=== PATIENT | female | born 1975 | race Hispanic/Latino ===

== ENCOUNTER 2024-02-12 15:54 | Emergency (ER) | payer OTHER ==
--- NOTE | 2024-02-12 17:09 | EDPHYS ---
Physician Documentation [facility] Name: Rona Thompson Age: 48 yrs Sex: Female : 1975 Arrival Date: 02/12/2024 Time: 15:54 Bed 12 Private MD: ED Physician Tanner Elena HPI: 02/11 16:17 This 48 yrs old Female presents to ER via Ambulatory with complaints of ms3 foreign body stuck in throat. 16:17 48-year-old female with no past medical history presents to the emergency department ms3 for concern for plastic from inside the bottle Of a juice bottle being lodged in her throat. Patient states at 10:00 this morning she drank juice and felt like the plastic was hung in her throat. Patient states the pain is a 3/10. Patient denies any alleviating factors. Patient states her pain is worse with swallowing.. 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 - Social history:: Smoking status: Patient denies any tobacco usage or history of. ROS: 16:17 Constitutional: Negative for fever, and chills. ms3 16:17 Cardiovascular: Negative for chest pain, and palpitations. Respiratory: Negative for shortness of breath, cough, wheezing, and pleuritic chest pain, Abdomen/GI: Negative for abdominal pain, nausea, vomiting, diarrhea, and constipation, Skin: Negative for injury, rash, and discoloration, 16:17 ENT: Positive for sore throat, Exam: 16:17 Constitutional: This is a well developed, well nourished patient who is awake, alert, ms3 and in no acute distress. Head/Face: Normocephalic, atraumatic. Neck: Trachea midline, no cervical lymphadenopathy. Supple, full range of motion without nuchal rigidity, or vertebral point tenderness. No Meningismus. Chest/axilla: Normal chest wall appearance and motion. Nontender with no deformity. Cardiovascular: Regular rate and rhythm with a normal S1 and S2. No gallops, murmurs, or rubs. Normal PMI, no JVD. No pulse deficits. Respiratory: Lungs have equal breath sounds bilaterally, clear to auscultation and percussion. No rales, rhonchi or wheezes noted. No increased work of breathing, no retractions or nasal flaring. 16:17 ENT: Posterior pharynx: Tonsils: are normal in appearance, Uvula: normal, midline, swelling, is not appreciated, erythema, that is moderate, exudate, is not appreciated, peritonsillar mass, is not appreciated, pooling of secretions, is not appreciated, Postnasal drip, Vital Signs: 16:15 BP 118 / 105; Pulse 70; Resp 17; Temp 98.1; Pulse Ox 97% ; Weight 63.5 kg; Height 5 ft. ap3 1 in. ; 16:15 Body Mass Index 26.45 (63.50 kg, 154.94 cm) ap3 MDM: 16:13 Patient medically screened. ms3 16:17 Differential diagnosis: pharyngitis, viral syndrome. ms3 17:14 Data reviewed: vital signs, nurses notes, lab test result(s), and as a result, I will ms3 discharge patient. Counseling: I had a detailed discussion with the patient and/or guardian regarding the historical points, exam findings, and any diagnostic results supporting the discharge/admit diagnosis, lab results, the need for outpatient follow up, to return to the emergency department if symptoms worsen or persist or if there are any questions or concerns that arise at home. ED course: Discussed negative strep results with patient. Patient's throat reexamined and no plastic seen, postnasal drip present with mucus. Uvula is midline no signs of oropharyngeal or retropharyngeal abscess. Patient to follow-up with primary care physician in 2 to 3 days. Patient understands and agrees with plan. All questions were answered. Return precautions discussed include worsening symptoms, or any other concerns. 02/11 16:16 Order name: Strep ms3 02/11 16:55 Order name: Throat Culture EDMS Administered Medications: No medications were administered Disposition Summary: 02/12/24 17:08 Discharge Ordered Notes: Location: Home ms3 Condition: Stable ms3 Diagnosis - Pain in throat ms3 - Elevated blood-pressure reading, without diagnosis of hypertension ms3 Followup: ms3 - With: Zurdo Crowell DO - When: 2 - 3 days - Reason: Recheck today's complaints Discharge Instructions: - Discharge Summary Sheet ms3 - Sore Throat, [id number] ms3 - DASH Eating Plan ms3 Forms: - Medication Reconciliation Form ms3 - Thank You Letter ms3 - Antibiotic Education ms3 - Prescription Opioid Use ms3 - Patient Portal Instructions ms3 - Leadership Thank You Letter ms3 Prescriptions: - Nasacort 55 mcg Nasal Aerosol, Fidelity - spray 2 spray INTRANASAL route once administer into each nostril; 11.1 ms3 milliliter; Refills: 0, Product Selection Permitted - Claritin 10 mg Oral Tablet - take 1 tablet ORAL route once daily As needed; 30 tablet; Refills: 0, Product ms3 Selection Permitted Signatures: Dispatcher [employer] Winifred Jha RN RN ap3 Tanner Elena DO DO ms3
--- NOTE | 2024-02-12 17:09 | ER ---
Nurse's Notes [facility] Name: Rona Thompson Age: 48 yrs Sex: Female : 1975 Arrival Date: 02/12/2024 Time: 15:54 Bed 12 Private MD: Diagnosis: Pain in throat;Elevated blood-pressure reading, without diagnosis of hypertension Presentation: 02/11 16:15 Chief complaint: Patient states: she was drinking juice this morning and felt like the ap3 plastic piece popped off and got stuck. patient complains of pain in her throat. Coronavirus screen: sore throat. Ebola Screen: No symptoms or risks identified at this time. Initial Sepsis Screen: Does the patient meet any 2 criteria? No. Patient's initial sepsis screen is negative. Does the patient have a suspected source of infection? No. Patient's initial sepsis screen is negative. Risk Assessment: Do you want to hurt yourself or someone else? Patient reports no desire to harm self or others. Onset of symptoms was February 12, 2024. 16:15 Method Of Arrival: Ambulatory ap3 16:15 Acuity: JESSICA 4 ap3 Triage Assessment: 16:17 General: Appears in no apparent distress. Behavior is calm, cooperative, appropriate ap3 for age. Pain: Complains of pain in throat Pain began this morning. EENT: Reports pain when swallowing. Neuro: Level of Consciousness is awake, alert, obeys commands, Oriented to person, place, time, situation. Cardiovascular: Patient's skin is warm and dry. Respiratory: Airway is patent Respiratory effort is even, unlabored, Respiratory pattern is regular, symmetrical. 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 - Social history:: Smoking status: Patient denies any tobacco usage or history of. Screenin:18 Abuse screen: Denies threats or abuse. Nutritional screening: No deficits noted. ap3 Tuberculosis screening: No symptoms or risk factors identified. 17:46 [facility] ED Fall Risk Assessment (Adult) History of falling in the last 3 months, ap3 including since admission No falls in past 3 months (0 pts) Confusion or Disorientation No (0 pts) Intoxicated or Sedated No (0 pts) Impaired Gait No (0 pts) Mobility Assist Device Used No (0 pt) Altered Elimination No (0 pt) Score/Fall Risk Level 0 - 2 = Low Risk Oriented to surroundings, Maintained a safe environment, Educated pt \T\ family on fall prevention, incl call for assistance when getting out of bed, Assessed \T\ reinforced patient's understanding of fall precautions, Provided non-skid footwear, Hourly rounding (assess needs \T\ fall precautionary measures) done, Used ambulatory aids as needed (educated on \T\ assisted with), Used gait belt as appropriate. Vital Signs: 16:15 BP 118 / 105; Pulse 70; Resp 17; Temp 98.1; Pulse Ox 97% ; Weight 63.5 kg; Height 5 ft. ap3 1 in. ; 16:15 Body Mass Index 26.45 (63.50 kg, 154.94 cm) ap3 ED Course: 15:56 Patient arrived in ED. ra3 15:57 Tanner Elena DO is Attending Physician. ms3 16:17 Triage completed. ap3 16:18 Arm band placed on right wrist. ap3 17:08 Zurdo Crowell DO is Referral Physician. ms3 17:45 No provider procedures requiring assistance completed. Patient did not have IV access ap3 during this emergency room visit. 17:46 Patient has correct armband on for positive identification. Bed in low position. Call ap3 light in reach. Side rails up X 1. Provided Education on: discharge instructions. Administered Medications: No medications were administered Medication: 17:46 VIS not applicable for this client. ap3 Outcome: 17:08 Discharge ordered by . ms3 17:45 Discharged to home ambulatory, ap3 17:45 Condition: good 17:45 Discharge instructions given to patient, Instructed on discharge instructions, follow up and referral plans. medication usage, Demonstrated understanding of instructions, follow-up care, medications, Prescriptions given X 2, 17:47 Patient left the ED. ap3 Signatures: Winifred Ohara RN RN ap3 Tanner Elena DO DO ms3 Alva Cisneros ra3
[2024-02-12 18:04] VITALS: BP 118/105; TEMP 98.1; O2SAT 97
== END 2024-02-12 17:47 | disposition home or self-care (01) ==
LOC: ER 15:54
DX: R07.0 Pain in throat (principal); R03.0 Elevated blood-pressure reading, without diagnosis of hypertension
CPT/HCPCS: 87070; 87081; 99283

== ENCOUNTER 2024-12-14 20:23 | Inpatient (IN) | payer OTHER ==
[2024-12-14 20:49] LABS: Absolute Basophils 0.2 K/uL (0-0.5); Absolute Eosinophils 0.1 K/uL (0-0.5); Absolute Monocytes 1.1 K/uL (0.1-1.3); Basophils % 1.3 % (0-1.3); Eosinophils % 1.1 % (0-4.4); Hematocrit 42.5 % (36.0-45.0); Hemoglobin 14.4 g/dL (12.0-15.0); Lymphocytes % 37.1 % (15.3-44.8); MCV 91.3 fL (80-100); MPV 8.5 fL (7.6-11.3); Monocytes % 8.4 % (3.3-12.3); Neutrophils % 52.1 % (41.7-73.7); Nucleated Red Blood Cells % 0.1 % (0-0); Platelets 408 thou/uL (152-406); RBC Red Blood Cell Count 4.65 M/uL (3.86-4.86); Red Cell Distribution Width 13.5 % (12.1-15.2)
[2024-12-14] MEDS ORDERED: NA CHLORIDE 0.9% 1,000 ML ONE (20:51)
[2024-12-14] MEDS ORDERED: ASPIRIN 81 MG CHEWABLE TABLET ONE (20:51)
[2024-12-14 20:59] LABS: PT Prothrombin Time 10.9 SECONDS (9.4-12.5); PTT, Activated Partial Thromb 26.3 SECONDS (24.3-36.9); Protime INR 1.04
[2024-12-14 21:14] LABS: ALT/SGPT 25 U/L (13-56); AST/SGOT 14 U/L (15-37); Albumin 3.8 g/dL (3.4-5.0); Albumin/Globulin Ratio 0.8 (1.1-1.8); Alkaline Phosphatase 92 U/L (45-117); Anion Gap 10.8 mEq/L (5.0-15.0); BUN Blood Urea Nitrogen 16 mg/dL (7-18); Bicarbonate 24 mEq/L (21-32); Bilirubin Total 0.3 mg/dL (0.2-1.0); Globulin 4.6 g/dL (2.3-3.5); Glomerular Filtration Rate 106 ml/min (=/>90); Glucose Level 99 mg/dL (74-106); Lipase 33 U/L (13-75); Magnesium 2.1 mg/dL (1.6-2.4); NT PRO-BNP 21 pg/mL (<125); Potassium 3.8 mEq/L (3.5-5.1); Protein, Total 8.4 g/dL (6.4-8.2); Sodium Level 133 mEq/L (136-145); Troponin High Sensitivity 5.4 pg/mL (<58.9)
[2024-12-14 21:15] LABS: Bilirubin Direct < 0.2 mg/dL (0-0.2); Bilirubin Indirect, Calculated 0.1 mg/dL (0.2-0.8)
--- NOTE | 2024-12-14 21:24 | RAD REPORT ---
EXAMINATION: ONE VIEW CHEST XR CLINICAL INDICATION: Female, 49 years old.,CHEST PAIN TECHNIQUE: Frontal chest projection is submitted. Examination is limited by patient positioning and t echnique. COMPARISON: No prior exam. FINDINGS: The lungs are free of focal infiltrates, with perihilar central interstitial prominence, could relate to under inflation. No pneumothorax or sizable effusion. The heart is normal in size. Mediastinal contours are unremarkable. IMPRESSION: Mild central interstitial prominence, could relate to under inflation versus mild central congestion.
[2024-12-14 22:05] LABS: Specific Gravity 1.016 (1.005-1.030); Sqamous Epithelial <5 /HPF (None Seen); Urine Bacteria None Seen /HPF (<20); Urine Bilirubin NEGATIVE (Negative); Urine Blood 1+ (Negative); Urine Clarity Clear (Clear); Urine Color Colorless (Yellow); Urine Culture Reflex Order NOT NEEDED; Urine Glucose NEGATIVE (Negative); Urine Ketones NEGATIVE (Negative); Urine Microscopic Reflex YN ORDER UMIC; Urine Nitrite NEGATIVE (Negative); Urine Protein NEGATIVE (Negative); Urine RBC <5 /HPF (None Seen); Urine Urobilinogen Normal (Normal); Urine WBC <5 /HPF (<5); Urine Yeast (Budding) Trace /HPF (None Seen)
[2024-12-14 22:22] LABS: Barbiturates NEGATIVE (NEGATIVE); Benzodiazepines NEGATIVE (NEGATIVE); Cocaine NEGATIVE (NEGATIVE); METHAMPHETAM NEGATIVE (NEGATIVE); Methadone NEGATIVE (NEGATIVE); Opiates NEGATIVE (NEGATIVE); Phencyclidine NEGATIVE (NEGATIVE); THC Cannibis NEGATIVE (NEGATIVE)
--- NOTE | 2024-12-14 22:27 | EDPHYS ---
Physician Documentation [facility] Name: Rona Thompson Age: 49 yrs Sex: Female : 1975 Arrival Date: 12/14/2024 Time: 20:23 Bed 8 Private MD: SCOTT Physician Mark Earl HPI: 12/14 22:20 This 49 yrs old Female presents to ER via Wheelchair with complaints of Chest price Pain. 22:20 This 49 yrs old Female presents to ER via Wheelchair with complaints of Chest price Pain. 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 - Infectious Disease History:: Denies. - Social history:: Smoking status: Patient denies any tobacco usage or history of. ROS: 22:22 Constitutional: Negative for fever, chills, and weight loss, Eyes: Negative for injury, price pain, redness, and discharge, ENT: Negative for injury, pain, and discharge, Neck: Negative for injury, pain, and swelling, Respiratory: Negative for shortness of breath, cough, wheezing, and pleuritic chest pain, Abdomen/GI: Negative for abdominal pain, nausea, vomiting, diarrhea, and constipation, Back: Negative for injury and pain, : Negative for injury, bleeding, discharge, and swelling, MS/Extremity: Negative for injury and deformity, Skin: Negative for injury, rash, and discoloration, Neuro: Negative for headache, weakness, numbness, tingling, and seizure, Psych: Negative for depression, anxiety, suicide ideation, homicidal ideation, and hallucinations, Allergy/Immunology: Negative for hives, rash, and allergies, Endocrine: Negative for neck swelling, polydipsia, polyuria, polyphagia, and marked weight changes, Hematologic/Lymphatic: Negative for swollen nodes, abnormal bleeding, and unusual bruising, 22:22 Cardiovascular: Positive for chest pain, of the chest, 22:22 MS/extremity: Negative for acute changes, Exam: 22:22 Constitutional: This is a well developed, well nourished patient who is awake, alert, price and in no acute distress. Head/Face: Normocephalic, atraumatic. Eyes: Pupils equal round and reactive to light, extra-ocular motions intact. Lids and lashes normal. Conjunctiva and sclera are non-icteric and not injected. Cornea within normal limits. Periorbital areas with no swelling, redness, or edema. ENT: Nares patent. No nasal discharge, no septal abnormalities noted. Tympanic membranes are normal and external auditory canals are clear. Oropharynx with no redness, swelling, or masses, exudates, or evidence of obstruction, uvula midline. Mucous membranes moist. Neck: Trachea midline, no thyromegaly or masses palpated, and no cervical lymphadenopathy. Supple, full range of motion without nuchal rigidity, or vertebral point tenderness. No Meningismus. Chest/axilla: Normal chest wall appearance and motion. Nontender with no deformity. No lesions are appreciated. Cardiovascular: Regular rate and rhythm with a normal S1 and S2. No gallops, murmurs, or rubs. Normal PMI, no JVD. No pulse deficits. Respiratory: Lungs have equal breath sounds bilaterally, clear to auscultation and percussion. No rales, rhonchi or wheezes noted. No increased work of breathing, no retractions or nasal flaring. Abdomen/GI: Soft, non-tender, with normal bowel sounds. No distension or tympany. No guarding or rebound. No evidence of tenderness throughout. Back: No spinal tenderness. No costovertebral tenderness. Full range of motion. Skin: Warm, dry with normal turgor. Normal color with no rashes, no lesions, and no evidence of cellulitis. MS/ Extremity: Pulses equal, no cyanosis. Neurovascular intact. Full, normal range of motion., bilateral aka Neuro: Awake and alert, GCS 15, oriented to person, place, time, and situation. Cranial nerves II-XII grossly intact. Motor strength 5/5 in all extremities. Sensory grossly intact. Cerebellar exam normal. Normal gait. Psych: Awake, alert, with orientation to person, place and time. Behavior, mood, and affect are within normal limits. 22:22 ECG was reviewed by the Attending Physician. Vital Signs: 20:34 BP 156 / 100; Pulse 89; Resp 15; Temp 98.9(O); Pulse Ox 100% ; Weight 69.4 kg; Height 4 cm10 ft. 11 in. ; 21:29 BP 135 / 73; Pulse 74; Resp 16; Pulse Ox 100% ; cp4 21:52 BP 126 / 75; Pulse 81; Resp 17; Pulse Ox 99% ; cp4 23:30 BP 133 / 87; Pulse 66; Resp 16; Pulse Ox 98% ; cp4 12/15 01:03 BP 117 / 70; Pulse 60; Resp 16; Pulse Ox 98% ; cp4 12/14 20:34 Body Mass Index 30.90 (69.40 kg, 149.86 cm) cm10 MDM: 12/14 20:34 Medical Screening Exam initiated price 22:23 Differential diagnosis: abnormal EKG, acute myocardial infarction, acute pericarditis, price anxiety, coronary artery disease chest wall pain, congestive heart failure Cholelithiasis costochondritis, esophagitis, gastritis, herpes zoster, pancreatitis, pneumonia, pulmonary embolus, stable angina, thoracic aortic disection, unstable angina. HEART Score: History: Moderately Suspicious (1), ECG: Non specific repolarization disturbance / LBTB / PM (1), Age: > 45 and < 65 years (1), Risk Factors:. The patient was given aspirin in the Emergency Department. NEVIN Risk Score: 1 - Three or more CAD risk factors, 1 - Recent [<24hrs] Severe Angina, TOTAL SCORE = 2. Data reviewed: vital signs, nurses notes, EMS record, lab test result(s), EKG, radiologic studies, CT scan, plain films. Consideration of Admission/Observation Patient was admitted/placed on observation. Escalation of care including admission/observation considered. I considered the following discharge prescriptions or medication management in the emergency department Medications were administered in the Emergency Department. See MAR. Independent interpretation of the following test(s) in the Emergency Department EKG: See my EKG interpretation above. Test considered but Not performed: Ultrasound NO 2 D ECHO. Historians other than the Patient: EMS: EMS WELL INFORMED. Care significantly affected by the following chronic conditions: Hypertension, Obesity. Counseling: I had a detailed discussion with the patient and/or guardian regarding the historical points, exam findings, and any diagnostic results supporting the discharge/admit diagnosis, lab results, radiology results, the need for further work-up and treatment in the hospital. 12/14 20:38 Order name: Basic Metabolic Panel; Complete Time: 21:33 [facility] 12/14 20:38 Order name: CBC with Diff; Complete Time: 21:33 [facility] 12/14 20:38 Order name: LFT's; Complete Time: 21: [facility] 12/14 20:38 Order name: Magnesium; Complete Time: 21:33 [facility] 12/14 20:38 Order name: NT PRO-BNP; Complete Time: 21:33 [facility] 12/14 20:38 Order name: PT-INR; Complete Time: 21: [facility] 12/14 20:38 Order name: Troponin HS; Complete Time: 21: [facility] 12/14 20:38 Order name: Lipase; Complete Time: 21: [facility] 12/14 20:38 Order name: Acetaminophen; Complete Time: : [facility] 12/14 20:38 Order name: ETOH Level; Complete Time: 21: [facility] 12/14 20:38 Order name: Ptt, Activated; Complete Time: 21:33 [facility] 12/14 20:38 Order name: Salicylate; Complete Time: 22:19 [facility] 12/14 20:38 Order name: Urinalysis w/ reflexes; Complete Time: 22:19 [facility] 12/14 20:38 Order name: Urine Drug Screen; Complete Time: : [facility] 12/14 20:45 Order name: Glucose, Ancillary Testing; Complete Time: : [facility] 12/14 23:13 Order name: Urinalysis w/ reflexes EDMA 12/14 23:13 Order name: CBC with Automated Diff EDMS 12/14 23:13 Order name: CBC with Automated Diff EDMS 12/14 23:13 Order name: Comprehensive Metabolic Panel EDMA 12/14 23:13 Order name: Comprehensive Metabolic Panel EDMS 12/14 23:13 Order name: Troponin High Sensitivity EDMS 12/14 23:13 Order name: Troponin High Sensitivity EDMS 12/14 23:13 Order name: Troponin High Sensitivity EDMS 12/14 23:13 Order name: Troponin High Sensitivity EDMA 12/14 20:38 Order name: XRAY Chest (1 view); Complete Time: 21:33 [facility] 12/14 20:38 Order name: CT Head Brain wo Cont; Complete Time: 01: [facility] 12/14 20:38 Order name: CT Chest For PE Angio; Complete Time: : [facility] 12/14 20:38 Order name: EKG; Complete Time: 20:39 [facility] 12/14 20:38 Order name: Cardiac monitoring; Complete Time: 20:40 [facility] 12/14 20:38 Order name: EKG - Nurse/Tech; Complete Time: 20:40 [facility] 12/14 20:38 Order name: IV Saline Lock; Complete Time: 20:40 [facility] 12/14 20:38 Order name: Labs collected and sent; Complete Time: 20:40 [facility] 12/14 20:38 Order name: O2 Per Protocol; Complete Time: 20:40 [facility] 12/14 20:38 Order name: O2 Sat Monitoring; Complete Time: 20:40 [facility] 12/14 20:38 Order name: Suicide Screening ([place]); Complete Time: 22:07 [facility] EC:22 Rate is 78 beats/min. Rhythm is regular. QRS [place] is Normal. ME interval is normal. QRS price interval is normal. QT interval is normal. No Q waves. T waves are Normal. No ST changes noted. Clinical impression: Normal ECG and No evidence of ischemia. Interpreted by me. Reviewed by me. Administered Medications: 20:54 Drug: Aspirin PO Chewable Tablet 81 mg PO once Route: PO; cp4 21:29 Follow up: Response: No adverse reaction cp4 20:54 Drug: NS 0.9% IV 1000 ml IV at 1000 ml once; to be given as a bolus over 60 minutes cp4 Route: IV; Rate: 1000 ml; Site: right antecubital; 23:00 Follow up: Response: No adverse reaction; IV Status: Completed infusion; IV Intake: ha1 1000ml 23:18 Drug: Enoxaparin Sub-Q 70 mg Sub-Q once Route: Sub-Q; Site: abdomen; cp4 23:29 Follow up: Response: No adverse reaction cp4 23:18 Drug: Famotidine IVP 20 mg IVP once; dilute with 10 mL 0.9% NaCl; give over 2 minutes cp4 Route: IVP; Site: right antecubital; 23:29 Follow up: Response: No adverse reaction cp4 Point of Care Testing: Blood Glucose: 20:36 Blood Glucose: 96 mg/dL; cm10 Ranges: Critical Glucose Levels:Adult <50 mg/dl or >400 mg/dl <40 mg/dl or >180 mg/dl Disposition Summary: 12/14/24 22:27 Hospitalization Ordered Notes: Hospitalization Status: Observation [facility] Provider: Antione Garrison cha Location: Telemetry/MedSurg (observation) price Condition: Stable price Problem: new price Symptoms: have improved price Bed/Room Type: Standard [facility] Room Assignment: 430(12/15/24 00:26) julio Diagnosis - Chest pain, unspecified price - Dyspnea price - SARS-associated coronavirus as the cause of diseases classified elsewhere - LAST [facility] WEEK Forms: - Medication Reconciliation Form price - SBAR form price - Leadership Thank You Letter [facility] Signatures: Dispatcher [employer] Rosi Van RN RN kl Anderson, Corey, MD MD cha Martinez, Clarissa, RN RN cm10 Kira Fisher 4 Mary Lock RN ha1 Corrections: (The following items were deleted from the chart) 12/15 00:26 12/14 22:27 price kim
--- NOTE | 2024-12-14 22:27 | RAD REPORT ---
EXAM: CT Head Brain Wo Cont HISTORY: MENTAL STATUS CHANGE COMPARISON: None TECHNIQUE: Multiple contiguous axial images were obtained for a CT of the brain without contrast. Sag ittal and coronal reformats were performed. One or more of the following dose reduction techniques were used: Automated exposure control, adjus tment of the mA and kV according to patient size, and iterative reconstruction. Unless otherwise specified, incidental findings do not require dedicated imaging follow-up. FINDINGS: No evidence of hydrocephalus, intracranial hemorrhage, or extra-axial fluid collection. The brain is normal in morphology. The calvarium is intact. The visualized paranasal sinuses and mastoid air cells are essentially clear . IMPRESSION: No evidence of acute intracranial abnormality.
--- NOTE | 2024-12-14 22:27 | ER ---
Nurse's Notes [facility] Name: Rona Thompson Age: 49 yrs Sex: Female : 1975 Arrival Date: 12/14/2024 Time: 20:23 Bed 8 Private MD: Diagnosis: Chest pain, unspecified;Dyspnea;SARS-associated coronavirus as the cause of diseases classified elsewhere-LAST WEEK Presentation: 12/14 20:34 Chief complaint: Patient states: She was walking her dogs and started having chest pain cm10 and bilateral arm numbness. Coronavirus screen: Client denies travel out of the [place] in the last 14 days. Ebola Screen: Patient denies travel to an Ebola-affected area in the 21 days before illness onset. Initial Sepsis Screen: Does the patient meet any 2 criteria? No. Patient's initial sepsis screen is negative. Does the patient have a suspected source of infection? No. Patient's initial sepsis screen is negative. Risk Assessment: Do you want to hurt yourself or someone else? Patient reports no desire to harm self or others. Onset of symptoms was December 14, 2024. 20:34 Method Of Arrival: Wheelchair cm10 20:34 Acuity: JESSICA 2 cm10 Triage Assessment: 20:34 General: Appears uncomfortable, Behavior is anxious, restless. Neuro: No deficits cm10 noted. Level of Consciousness is awake, alert, obeys commands, Oriented to person, place, time, situation, Appropriate for age. Respiratory: No deficits noted. Airway is patent Respiratory effort is even, unlabored, Respiratory pattern is regular, symmetrical. SPORTS ATTORNEY: 21:52 LMP 12/14/2024, Not cp4 Historical: - Allergies: 20:36 No Known Allergies; cm10 - Home Meds: 20:36 None [Active]; cm10 - PMHx: 20:36 [employer] DIAB.; cm10 - PSHx: 20:36 None; cm10 - Immunization history:: Adult Immunizations up to date. - Infectious Disease History:: Denies. - Social history:: Smoking status: Patient denies any tobacco usage or history of. Screenin:02 [facility] ED Fall Risk Assessment (Adult) History of falling in the last 3 months, cp4 including since admission No falls in past 3 months (0 pts) Confusion or Disorientation No (0 pts) Intoxicated or Sedated No (0 pts) Impaired Gait No (0 pts) Mobility Assist Device Used No (0 pt) Altered Elimination No (0 pt) Score/Fall Risk Level 0 - 2 = Low Risk Oriented to surroundings, Maintained a safe environment, Assessed \\T\\ reinforced patient's understanding of fall precautions, Hourly rounding (assess needs \\T\\ fall precautionary measures) done. Abuse screen: Denies threats or abuse. Denies injuries from another. Nutritional screening: No deficits noted. Tuberculosis screening: No symptoms or risk factors identified. Assessment: 22:02 General: Appears in no apparent distress. comfortable, Behavior is calm, cooperative, cp4 appropriate for age. Pain: Complains of pain in chest Pain does not radiate. Pain currently is 8 out of 10 on a pain scale. Pain began suddenly. Neuro: Level of Consciousness is awake, alert, obeys commands, Oriented to person, place, time, situation. Cardiovascular: Patient's skin is warm and dry. Rhythm is sinus rhythm. Respiratory: Airway is patent Respiratory effort is even, unlabored. GI: No signs and/or symptoms were reported involving the gastrointestinal system. : No signs and/or symptoms were reported regarding the genitourinary system. EENT: No signs and/or symptoms were reported regarding the EENT system. Derm: No signs and/or symptoms reported regarding the dermatologic system. Musculoskeletal: No signs and/or symptoms reported regarding the musculoskeletal system. 23:30 Reassessment: Patient appears in no apparent distress at this time. Patient and/or cp4 family updated on plan of care and expected duration. Pain level reassessed. Patient is alert, oriented x 3, equal unlabored respirations, skin warm/dry/pink. 12/15 01:07 Reassessment: Patient appears in no apparent distress at this time. Patient and/or cp4 family updated on plan of care and expected duration. Pain level reassessed. Patient is alert, oriented x 3, equal unlabored respirations, skin warm/dry/pink. Psych: 12/14 22:06 Ramsay Suicide Severity Screening: In the past month, have you wished you were cp4 or wished you could go to sleep and not wake up? Patient responds "No." "In the past month, have you actually had any thoughts of killing yourself?" Patient responds "no." "In your lifetime, have you ever done anything, started to do anything, or prepared to do anything to end your life?" Patient responds "no.". Subjective: Patient's mood is normal Delusions are denied, Hallucinations are denied Having thoughts of none. Objective: Patient is cooperative, Speech is normal, Affect is appropriate. Pt denies substance abuse. Vital Signs: 20:34 BP 156 / 100; Pulse 89; Resp 15; Temp 98.9(O); Pulse Ox 100% ; Weight 69.4 kg; Height 4 cm10 ft. 11 in. ; 21:29 BP 135 / 73; Pulse 74; Resp 16; Pulse Ox 100% ; cp4 21:52 BP 126 / 75; Pulse 81; Resp 17; Pulse Ox 99% ; cp4 23:30 BP 133 / 87; Pulse 66; Resp 16; Pulse Ox 98% ; cp4 12/15 01:03 BP 117 / 70; Pulse 60; Resp 16; Pulse Ox 98% ; cp4 12/14 20:34 Body Mass Index 30.90 (69.40 kg, 149.86 cm) cm10 ED Course: 12/14 20:33 Patient arrived in ED. cm10 20:34 Mark Earl MD is Attending Physician. price 20:36 Triage completed. cm10 20:37 Arm band placed on right wrist. Patient placed in an exam room, on a stretcher, on cm10 personnel monitor, on pulse oximetry. 20:41 Initial lab(s) drawn, by me, sent to lab. EKG done, by ED staff. Inserted saline lock: vk 20 gauge in right antecubital area, using aseptic technique. Blood collected. Flushed with 10 mL NS. 20:47 Troponin HS Sent. vk 20:47 PT-INR Sent. vk 20:47 NT PRO-BNP Sent. vk 20:47 Magnesium Sent. vk 20:47 LFT's Sent. vk 20:47 Basic Metabolic Panel Sent. vk 20:47 CBC with Diff Sent. vk 20:49 Kira Fisher is Primary Nurse. cp4 21:15 XRAY Chest (1 view) In Process Unspecified. EDMS 21:37 CT Head Brain wo Cont In Process Unspecified. EDMS 21:38 CT Chest For PE Angio In Process Unspecified. EDMS 21:58 Urine Drug Screen Sent. cp4 21:58 Urinalysis w/ reflexes Sent. cp4 22:02 Placed in gown. Bed in low position. Call light in reach. Side rails up X2. Provided cp4 Education on:. Client placed on continuous cardiac and pulse oximetry monitoring. NIBP monitoring applied. monitor car operator on. Pulse ox on. NIBP on. 22:02 No provider procedures requiring assistance completed. Patient maintains SpO2 cp4 saturation greater than 95% on room air. 22:26 Antione Garrison MD is Hospitalizing Provider. [facility] 12/15 01:44 Patient admitted, IV remains in place. ha1 Administered Medications: 12/14 20:54 Drug: Aspirin PO Chewable Tablet 81 mg PO once Route: PO; cp4 21:29 Follow up: Response: No adverse reaction cp4 20:54 Drug: NS 0.9% IV 1000 ml IV at 1000 ml once; to be given as a bolus over 60 minutes cp4 Route: IV; Rate: 1000 ml; Site: right antecubital; 23:00 Follow up: Response: No adverse reaction; IV Status: Completed infusion; IV Intake: ha1 1000ml 23:18 Drug: Enoxaparin Sub-Q 70 mg Sub-Q once Route: Sub-Q; Site: abdomen; cp4 23:29 Follow up: Response: No adverse reaction cp4 23:18 Drug: Famotidine IVP 20 mg IVP once; dilute with 10 mL 0.9% NaCl; give over 2 minutes cp4 Route: IVP; Site: right antecubital; 23:29 Follow up: Response: No adverse reaction cp4 Medication: 22:02 VIS not applicable for this client. cp4 Point of Care Testing: Blood Glucose: 20:36 Blood Glucose: 96 mg/dL; cm10 Ranges: Intake: 23:00 IV: 1000ml; Total: 1000ml. ha1 Outcome: 22:27 Decision to Hospitalize by Provider. [facility] 12/15 01:04 Admitted to Med/surg accompanied by tech, via wheelchair, with chart, cp4 Condition: stable Instructed on the need for admit, 01:44 Patient left the ED. ha1 Signatures: Dispatcher [employer] EDMark Mojica MD MD cha Ayala, Heidy, RN RN ha1 Amanda Stein RN RN 10 Kira Fisher cp4 [employer] Corrections: (The following items were deleted from the chart) 12/14 21:53 21:29 Not cp4 cp4
--- NOTE | 2024-12-14 22:37 | RAD REPORT ---
EXAM: CT Chest For Pe Angio TECHNIQUE: CT angiogram of the chest was performed following intravenous contrast administration, inc luding sagittal and coronal as well as maximum intensity projection reformats. One or more of the following dose reduction techniques were used: Automated exposure control, adjustment of the mA and k V according to patient size, and iterative reconstruction. Unless otherwise specified, incidental findings do not require dedicated imaging follow-up. INDICATION: [facility] MAIN CHEST PAIN Bed Name: 8 N COMPARISON: Chest radiograph of the same day. FINDINGS: LINES/TUBES: None. PULMONARY ARTERIES: Main pulmonary arteries are normal in caliber. No filling defects within the pul monary arteries to suggest pulmonary embolus. LUNGS AND AIRWAYS: The lungs and central airways are normal without focal abnormality. PLEURA: No effusion or pneumothorax. HEART AND MEDIASTINUM: The visualized thyroid gland is normal. No mediastinal, hilar, or axillary lym phadenopathy. Heart is unremarkable. No pericardial effusion. SOFT TISSUES AND BONES: No acute osseous abnormality. No significant soft tissue finding. UPPER ABDOMEN: Unremarkable. IMPRESSION: No evidence of acute central pulmonary emboli. No suspicious intrathoracic findings..
[2024-12-14] MEDS ORDERED: ONDANSETRON 4 MG/2 ML VIAL IV PRN (23:07)
[2024-12-14] MEDS ORDERED: ACETAMINOPHEN 325 MG TABLET PO PRN (23:07)
--- NOTE | 2024-12-14 23:07 | P.HP ---
Certification for Inpatient Patient admitted to: Observation With expected LOS: <2 Midnights Practitioner: I am a practitioner with admitting privileges, knowledge of patient current condition, hospital course, and medical plan of care. Services: Services provided to patient in accordance with Admission requirements found in Title 42 Section 412.3 of the Code of Federal Regulations Patient History Date of Service: 12/14/24 Reason for admission: CP History of Present Illness: 49 yrs old Female with no significant past medical history other than borderline diabetes who was brought to ER with chest pain. Pain is located in retrosternally, nonradiating, no fever or chills. Denies any diaphoresis. No nausea vomiting or diarrhea. Denies any shortness of breath. Worse with movements. No previous history of CAD. Patient was assessed in the ER and was admitted for further management of chest pain to rule out ACS. Allergies No Known Allergies Allergy (Unverified 09/14/14 02:56) Home medications list reviewed: Yes Home Medications: NK [No Home Meds] 09/14/14 - Past Medical/Surgical History Diabetic: No Past Medical History: Reviewed- Non-Contributory Past Surgical History: Reviewed- Non-Contributory -: splenectomy -: Right ovary removed - Family History Family History: Reviewed- Non-Contributory - Social History Smoking Status: Never smoker Alcohol use: No CD- Drugs: No Caffeine use: No Review of Systems 10-point ROS is otherwise unremarkable Physical Examination - Vital Signs Temperature: 97.2 F Blood Pressure: 136/78 Pulse: 82 Respirations: 18 Pulse Ox (%): 94 - Physical Exam General: Alert, In no apparent distress, Oriented x3 HEENT: Atraumatic, Normocephalic Neck: Supple, 2+ carotid pulse no bruit Respiratory: Clear to auscultation bilaterally, Normal air movement Cardiovascular: No edema, Regular rate/rhythm, Normal S1 S2 Capillary refill: <2 Seconds Gastrointestinal: Soft and benign, W/out hepatosplenomegaly Musculoskeletal: No clubbing, No swelling Integumentary: No rashes Neurological: Normal speech, Normal strength at 5/5 x4 extr, Cranial nerves 3-12 intact, Normal reflexes 2+ Lymphatics: No axilla or inguinal lymphadenopathy - Studies Laboratory Data (last 24 hrs) 12/14/24 12/14/24 12/14/24 20:42 20:42 20:42 WBC 13.50 H Hgb 14.4 Hct 42.5 Plt Count 408 H PT 10.9 INR 1.04 APTT 26.3 Sodium 133 L Potassium 3.8 BUN 16 Creatinine 0.69 Glucose 99 Magnesium 2.1 Total Bilirubin 0.3 AST 14 L ALT 25 Alkaline Phosphatase 92 Lipase 33 Assessment and Plan - Plan Chest pain rule out ACS Will trend cardiac enzymes Will monitor telemetry Started on aspirin and statin EKG did not show any acute changes suggestive of ischemia Will get an echocardiogram, lipid panel and an A1c Cardiology consult GI/DVT prophylaxis Advanced directive full code Discharge Plan: Home Plan to discharge in: 24 Hours - Advance Directives Does patient have a Living Will: No Does patient have a Durable POA for Healthcare: No - Code Status/Comfort Care Code Status: Full Code Time Spent Managing Pts Care (In Minutes): 48
[2024-12-14] MEDS ORDERED: ENOXAPARIN 80 MG/0.8 ML SQ ONE (23:14)
[2024-12-14] MEDS ORDERED: FAMOTIDINE 20 MG/2 ML VIAL IV ONE (23:14)
[2024-12-15 02:17] VITALS: BMI 31.1
[2024-12-15 03:45] LABS: Absolute Basophils 0.2 K/uL (0-0.5); Absolute Eosinophils 0.2 K/uL (0-0.5); Absolute Lymphocytes (CBC) 6.5 K/uL (0.7-4.9); Absolute Monocytes 0.8 K/uL (0.1-1.3); Absolute Neutrophil 5.6 K/uL (1.8-8.0); Basophils % 1.2 % (0-1.3); Eosinophils % 1.6 % (0-4.4); Hematocrit 38.6 % (36.0-45.0); Hemoglobin 13.2 g/dL (12.0-15.0); MCH 31.3 pg (27.0-35.0); MCHC 34.1 g/dL (32.0-36.0); MCV 91.7 fL (80-100); Monocytes % 6.1 % (3.3-12.3); Neutrophils % 42.1 % (41.7-73.7); Nucleated Red Blood Cells % 0.1 % (0-0); Platelets 379 thou/uL (152-406); RBC Red Blood Cell Count 4.21 M/uL (3.86-4.86); Red Cell Distribution Width 13.6 % (12.1-15.2)
[2024-12-15 04:04] LABS: Albumin 3.2 g/dL (3.4-5.0); Albumin/Globulin Ratio 0.8 (1.1-1.8); Anion Gap 6.9 mEq/L (5.0-15.0); Bilirubin Total 0.4 mg/dL (0.2-1.0); Globulin 3.9 g/dL (2.3-3.5); Protein, Total 7.1 g/dL (6.4-8.2)
[2024-12-15 04:05] LABS: Potassium 3.9 mEq/L (3.5-5.1)
[2024-12-15 05:08] LABS: Absolute Basophils 0.2 K/uL (0-0.5); Absolute Eosinophils 0.2 K/uL (0-0.5); Absolute Lymphocytes (CBC) 6.3 K/uL (0.7-4.9); Absolute Monocytes 0.8 K/uL (0.1-1.3); Basophils % 1.5 % (0-1.3); Eosinophils % 1.8 % (0-4.4); Hematocrit 39.6 % (36.0-45.0); Hemoglobin 13.4 g/dL (12.0-15.0); Lymphocytes % 50.3 % (15.3-44.8); MCH 31.2 pg (27.0-35.0); MCHC 33.8 g/dL (32.0-36.0); MCV 92.3 fL (80-100); MPV 8.1 fL (7.6-11.3); Monocytes % 6.5 % (3.3-12.3); Neutrophils % 39.9 % (41.7-73.7); Nucleated Red Blood Cells % 0.2 % (0-0); Platelets 387 thou/uL (152-406); RBC Red Blood Cell Count 4.29 M/uL (3.86-4.86); Red Cell Distribution Width 13.8 % (12.1-15.2)
[2024-12-15 05:26] LABS: PT Prothrombin Time 11.5 SECONDS (9.4-12.5); PTT, Activated Partial Thromb 34.8 SECONDS (24.3-36.9); Protime INR 1.1
[2024-12-15] MEDS ORDERED: PNEUMOCOCCAL VACCINE 0.5 ML IMVAC ONE (08:00)
[2024-12-15 08:19] LABS: Blood Morphology Comment NOT SEEN (NOT SEEN); Differential Total Cells Count 100; Eosinophils 3 % (0-3); Lymphocytes 51 % (15-42); Monocytes 3 % (0-10); Nucleated Red Blood Cells 1 /100WBC; Platelet Estimate ADEQ; Segmented Neutrophils 39 % (40-80)
--- NOTE | 2024-12-15 08:32 | P.PN ---
Date of Service: 12/15/24 Subjective: seen after cath feels better still slight chest pressure reports been having chills/sweats since last night as well denies cough/SOB, no nausea/vomiting, no diarrhea no change in bowel/bladder habits ROS: 10 point ROS as noted above, otherwise negative Physical Exam: GEN: Alert, oriented, NAD CV: Regular rate and rhythm, no edema Pulm: Nonlabored respirations on room air, clear bilaterally ABD: soft, nontender, nondistended Neuro: Normal speech, normal affect Problem List: NSTEMI on admission, presents with chest pain, palpitations for 1 day. Chest pressure lasting for minutes at a time, +reports feeling fluttery feeling CXR (12/14): mild central interstitial prominence; under inflation vs mild central congestion. CTA chest (12/14): no acute findings. no PE. Trend troponins; 5 -> 1574 -> 1121 Monitor on telemetry, check EKG Cardiology consulted NPO for LHC - underwent PCI echo ordered to eval EF / stenosis given therapeutic lovenox, aspirin 81 mg, IV fluids in ED. Brilinta ordered by cardiology i sent prescription to pharmacy today; instructed family to check cost prior to discharge VTE: Given therapeutic lovenox in ED Code: Full Dispo: Home tomorrow Time Spent Managing Pts Care (In Minutes): 55
[2024-12-15] MEDS ORDERED: ENOXAPARIN 40 MG/0.4 ML SQ SCH (09:00)
[2024-12-15] MEDS: ASPIRIN EC 81 MG TAB PO SCH (09:00)
[2024-12-15] MEDS ORDERED: HEPA 1000U/500MLS 2,000 UNIT/1,000 ML BAG IV ONE (09:19)
--- NOTE | 2024-12-15 09:19 | P.CNS ---
Date of Consult: 12/15/24 Chief Complaint: CP History of Present Illness: Patient with no significant PMH presented with chest pain and palpitations that started yesterday, feels like pressure mid chest, on/off lasting few minutes, also report fluttery feeling in her chest, denies any other cardiac symptoms. Allergies No Known Allergies Allergy (Unverified 09/14/14 02:56) Home medications list reviewed: Yes Home Medications: NK [No Home Meds] 09/14/14 - Past Medical/Surgical History Diabetic: No -: splenectomy -: Right ovary removed - Social History Smoking Status: Never smoker Alcohol use: No CD- Drugs: No Caffeine use: No Place of Residence: Home Review of Systems 10-point ROS is otherwise unremarkable Physical Examination Temp Pulse Resp BP Pulse Ox 97.4 F 76 17 132/80 97 12/15/24 04:00 12/15/24 04:00 12/15/24 04:00 12/15/24 04:00 12/15/24 04:00 General: Alert, In no apparent distress HEENT: Atraumatic, PERRLA, Mucous membr. moist/pink, EOMI, Sclerae nonicteric Neck: Supple, 2+ carotid pulse no bruit, No LAD, Without JVD or thyroid abnormality Respiratory: Clear to auscultation bilaterally, Normal air movement Cardiovascular: Regular rate/rhythm, Normal S1 S2 Gastrointestinal: Normal bowel sounds, No tenderness Musculoskeletal: No tenderness Integumentary: No rashes Neurological: Normal gait, Normal speech, Normal tone, Normal affect Lymphatics: No axilla or inguinal lymphadenopathy Laboratory Data (last 24 hrs) 12/14/24 12/14/24 12/14/24 20:42 20:42 20:42 WBC 13.50 H Hgb 14.4 Hct 42.5 Plt Count 408 H PT 10.9 INR 1.04 APTT 26.3 Sodium 133 L Potassium 3.8 BUN 16 Creatinine 0.69 Glucose 99 Magnesium 2.1 Total Bilirubin 0.3 AST 14 L ALT 25 Alkaline Phosphatase 92 Triglycerides Cholesterol HDL Cholesterol Cholesterol/HDL Ratio Lipase 33 12/14/24 03:05 WBC Hgb Hct Plt Count PT INR APTT Sodium Potassium BUN Creatinine Glucose Magnesium Total Bilirubin AST ALT Alkaline Phosphatase Triglycerides Cancelled Cholesterol Cancelled HDL Cholesterol Cancelled Cholesterol/HDL Ratio Cancelled Lipase - Problems (1) NSTEMI (non-ST elevated myocardial infarction) Current Visit: Yes Status: Acute Plan: patient EKG reviewed, enzymes trended up NPO for coronary angiogram ASA 81 mg daily Heparin drip Get echo (2) Palpitations Current Visit: Yes Status: Acute Plan: continue to monitor on tele echo
[2024-12-15] MEDS ORDERED: CLOPIDOGREL 75 MG TABLET ONE (09:20)
[2024-12-15] MEDS ORDERED: LIDOCAINE 1% 20 ML MDV ONE (09:20)
[2024-12-15] MEDS ORDERED: ATROPINE SULF 1 MG/10 ML SYR IV ONE (09:20)
[2024-12-15] MEDS ORDERED: HEPARIN 10,000 UNIT/10 ML VIAL IV ONE (09:20)
[2024-12-15] MEDS ORDERED: MIDAZOLAM HCL 2 MG/2 ML INJ ONE (09:20)
[2024-12-15] MEDS ORDERED: ASPIRIN 325 MG TAB ONE (09:21)
[2024-12-15] MEDS ORDERED: TICAGRELOR 90 MG TABLET PO ONE (09:21)
[2024-12-15] MEDS ORDERED: FENTANYL CITR 100 MCG/2 ML ONE (09:21)
[2024-12-15] MEDS ORDERED: HEPARIN 5000 UNIT/ML 1 ML VIAL ONE (09:21)
[2024-12-15] MEDS ORDERED: NA CHLORIDE 0.9% 500 ML ONE (09:35)
[2024-12-15] MEDS ORDERED: HEPARIN/D5W 25,000 UNIT/500 ML BAG IV PRN (11:00)
[2024-12-15] MEDS: POTASSIUM CL SA 10 MEQ TAB PO ONE (14:33)
[2024-12-15] MEDS: ROSUVASTATIN 10 MG TAB PO SCH (20:19)
[2024-12-15] MEDS: TICAGRELOR 90 MG TABLET PO SCH (20:19)
[2024-12-15] MEDS ORDERED: ATORVASTATIN 40 MG TAB PO SCH (21:00)
[2024-12-15] MEDS: clonazePAM 0.5 MG TAB PO ONE (22:23)
[2024-12-15 22:30] VITALS: O2SAT 96
[2024-12-16 07:11] LABS: MPV 8.3 fL (7.6-11.3); Platelets 392 thou/uL (152-406)
[2024-12-16 07:28] LABS: Anion Gap 10.9 mEq/L (5.0-15.0)
[2024-12-16 07:29] LABS: Potassium 4.9 mEq/L (3.5-5.1)
[2024-12-16] MEDS: ASPIRIN 81 MG CHEWABLE TABLET PO SCH (08:58)
[2024-12-16] MEDS: NA CHLORIDE 0.9% 500 ML IV ONE (09:09)
[2024-12-16 10:14] VITALS: TEMP 97.9
[2024-12-16] MEDS: CLOPIDOGREL 75 MG TABLET PO ONE (10:48)
--- NOTE | 2024-12-16 12:14 | RAD REPORT ---
Procedure: Chest Single View HISTORY: Chest pain COMPARISON: December 14, 2024 FINDINGS: The lungs appear clear of acute infiltrate. No significant pleural effusion noted. The heart is normal size. IMPRESSION: No acute abnormality is displayed.
--- NOTE | 2024-12-16 12:25 | P.PN ---
Date of Service: 12/16/24 Subjective: ROS: 10 point ROS as noted above, otherwise negative Physical Exam: GEN: Alert, oriented, NAD CV: Regular rate and rhythm, no edema Pulm: Nonlabored respirations on room air, clear bilaterally ABD: soft, nontender, nondistended Neuro: Normal speech, normal affect Problem List: NSTEMI CAD s/p mid LAD PCI (12/15) Altered mentation NSTEMI CAD s/p mid LAD PCI (12/15) on admission, presents with chest pain, palpitations for 1 day. Chest pressure lasting for minutes at a time, +reports feeling fluttery feeling CXR (12/14): mild central interstitial prominence; under inflation vs mild central congestion. CTA chest (12/14): no acute findings. no PE. Trend troponins; 5 -> 1574 -> 1121 Monitor on telemetry Cardiology consulted s/p [facility]; Prelim report noted 60-70% mid LAD stenosis s/p PCI, mild proximal LAD stenosis. echo done; pending official report Brilinta ordered by cardiology i sent prescription to pharmacy yesterday; Family reports brilinta too costly Given 600 mg plavix 12/16 Altered mentation Patient now altered, confused. CT brain ordered to eval check circus trainer on telemetry Code: Full Dispo: Home pending CT, mentation improves Time Spent Managing Pts Care (In Minutes): 55
--- NOTE | 2024-12-16 12:29 | RAD REPORT ---
EXAM: CT brain without contrast HISTORY: somnolence, alteration of consciousness COMPARISON: December 14, 2024 TECHNIQUE: Multiple contiguous axial images were obtained and a CT of the brain without contrast.. Sagittal and coronal reconstruction performed. Automated exposure control, adjustment of the mA and/or kV according to patient size, and/or iterative reconstruction. Unless otherwise specified, incidental f indings do not require dedicated imaging follow-up FINDINGS: An intracranial bleed is not seen Ventricles are normal caliber No extra-axial fluid collection noted No significant hypodensity within the brain No fluid within the visualized sinuses or mastoids noted. IMPRESSION: No acute intracranial abnormality noted. If the patient continues to have symptoms to suggest an acute intracranial abnormality then MRI of th e brain would be recommended.
--- NOTE | 2024-12-16 13:40 | ECHO ---
HEIGHT: 4 ft 11 in WEIGHT: 154 lb 0 oz DATE OF STUDY: 12/16/[address]: Vance Garrison DO 2-DIMENSIONAL: YES M.MODE: YES DOPPLER: YES COLOR FLOW: YES TDS: NO PORTABLE: YES DEFINITY: NO BUBBLE STUDY: NO DIAGNOSIS: CHEST PAIN CARDIAC HISTORY: CATHERIZATION: YES SURGERY: NO PROSTHETIC VALVE: NO PACEMAKER: NO MEASUREMENTS (cm) DIASTOLIC (NORMALS) SYSTOLIC (NORMALS) IVSd 1.1 (0.6-1.2) LA Diam 2.1 (1.9-4.0) LVEF 60-65% LVIDd 3.8 (3.5-5.7) LVIDs 2.4 (2.0-3.5) %FS 37% LVPWd 1.1 (0.6-1.2) Ao Diam 2.4 (2.0-3.7) 2 DIMENSIONAL ASSESSMENT: RIGHT ATRIUM: NORMAL LEFT ATRIUM: NORMAL RIGHT VENTRICLE: NORMAL LEFT VENTRICLE: NORMAL TRICUSPID VALVE: NORMAL MITRAL VALVE: NORMAL PULMONIC VALVE: NORMAL AORTIC VALVE: NORMAL PERICARDIAL EFFUSION: NONE AORTIC ROOT: NORMAL LEFT VENTRICULAR WALL MOTION: NORMAL. DOPPLER/COLOR FLOW: NORMAL. COMMENTS: 1. NORMAL LEFT VENTRICULAR SYSTOLIC FUNCTION, EJECTION FRACTION 60-65, NORMAL WALL MOTION. 2. NORMAL DIASTOLIC FUNCTION. TECHNOLOGIST: BOOKER CANAS
--- NOTE | 2024-12-16 14:11 | P.PN ---
Subjective Date of Service: 12/16/24 Chief Complaint: CP Subjective: No new changes, No C/O voiced, Tolerating diet, Ambulating, Improving Review of Systems 10-point ROS is otherwise unremarkable Physical Examination - Vital Signs Temperature: 97.9 F Blood Pressure: 97/59 Pulse: 65 Respirations: 20 Pulse Ox (%): 96 - Physical Exam General: Alert, In no apparent distress HEENT: Atraumatic, PERRLA, EOMI Neck: Supple, JVD not distended Respiratory: Clear to auscultation bilaterally, Normal air movement Cardiovascular: Regular rate/rhythm, Normal S1 S2 Gastrointestinal: Normal bowel sounds, No tenderness Musculoskeletal: No tenderness Integumentary: No rashes Neurological: Normal speech, Normal tone, Normal affect Lymphatics: No axilla or inguinal lymphadenopathy - Studies Laboratory Data (last 24 hrs) 12/16/24 12/16/24 06:42 06:42 Plt Count 392 Sodium 137 Potassium 4.9 D BUN 13 Creatinine 0.64 Glucose 108 H Medications List Reviewed: Yes Assessment And Plan - Current Problems (Diagnosis) (1) NSTEMI (non-ST elevated myocardial infarction) Current Visit: Yes Status: Acute Plan: Coronary angiogram done yesterday and shown significant mid LAD s/p PCI ASA 81 mg daily Plavix 75 mg daily Crestor 20 mg daily Echo shows normal EF and wall motions (2) Palpitations Current Visit: Yes Status: Acute Plan: Tele overnight shows no arrhythmia.
[2024-12-16 14:25] LABS: Absolute Basophils 0.1 K/uL (0-0.5); Absolute Eosinophils 0.1 K/uL (0-0.5); Absolute Lymphocytes (CBC) 3.7 K/uL (0.7-4.9); Absolute Monocytes 0.6 K/uL (0.1-1.3); Absolute Neutrophil 4.7 K/uL (1.8-8.0); Basophils % 1.2 % (0-1.3); Eosinophils % 1.6 % (0-4.4); Hematocrit 40.4 % (36.0-45.0); Hemoglobin 13.9 g/dL (12.0-15.0); Lymphocytes % 40.1 % (15.3-44.8); MCH 31.6 pg (27.0-35.0); MCHC 34.4 g/dL (32.0-36.0); MCV 91.9 fL (80-100); MPV 8.5 fL (7.6-11.3); Monocytes % 6.7 % (3.3-12.3); Neutrophils % 50.4 % (41.7-73.7); Nucleated Red Blood Cells % 0.1 % (0-0); Platelets 385 thou/uL (152-406); Red Cell Distribution Width 13.4 % (12.1-15.2)
[2024-12-16 14:27] LABS: Albumin 3.3 g/dL (3.4-5.0); Albumin/Globulin Ratio 0.8 (1.1-1.8); Bilirubin Total 0.5 mg/dL (0.2-1.0); Globulin 4.1 g/dL (2.3-3.5); Magnesium 2.1 mg/dL (1.6-2.4); Protein, Total 7.4 g/dL (6.4-8.2); Thyroid Stimulating Hormone 1.73 uIU/mL (0.358-3.740)
[2024-12-16 17:08] VITALS: BP 113/65
[2024-12-16] MEDS ORDERED: PNEUMOCOCCAL VACCINE 0.5 ML IMVAC ONE (19:00)
--- NOTE | 2024-12-17 01:01 | OP ---
Date of Procedure: 12/15/2024 Surgeon: Jd Rodriges Procedure Performed: 1. Selective coronary angiogram. 2. PCI of the LAD with Synergy 3.0 x 16 mm drug-eluting stent. Indication For Procedure: [id number]. Complications: None. Estimated Blood Loss: Less than 50 cc. Access: Right radial, closed by TR band. Sedation Time: 30 minutes with 1 of Versed and 25 of fentanyl. Description Of Procedure: After risks, benefits, and alternatives were explained to the patient, the patient agreed to proceed with procedure and signed informed consent. The patient was brought back to the geochemical laboratory technician, prepped and draped in sterile fashion. Time-out was performed. Sedation was admini stered. Next, the right radial access was obtained using ultrasound-guided micropuncture technique. [place] 4 catheter was advanced over J-wire to the aortic root. Selective angiogram was used during t his catheter and this catheter was later exchanged to XB LAD 3.0 mm guide. Heparin was administered. ACT was therapeutic. Runthrough wire was passed across the lesion. IVUS catheter was inserted, wh ich showed significant plaque burden in the mid LAD, so IVUS catheter was removed. The lesion was pr e-dilated with an NC 2.5 mm balloon. Next, Synergy 3.0 x 16 mm drug-eluting stent was placed across the lesion, that is postdilated with NC 3.25 mm balloon. Final angiogram shows NEVIN-3 flow. At the end of procedure, wire was removed, catheter was removed over a J-wire. Sheath was removed. TR band was applied and hemostasis achieved. The patient was moved to recovery in stable condition. Findings: 1. Left main normal. 2. LAD: Proximal mild luminal irregularities with mid 60% to 70% disease. IVUS shows significant pl aque burden with a plaque erosion and status post PCI with Synergy 3.0 x 16 mm drug-eluting stent. M id to distal tortuous mild luminal irregularities. 3. Left circ: Mild luminal irregularities. 4. RCA: Large dominant with mild luminal irregularities. Assessment And Plan: Significant mid LAD disease, status post PCI with Synergy 3.0 x 16 mm drug-elut ing stent. Plan: Aspirin 81 mg daily for life. Brilinta 180 x1 was given in the geochemical laboratory technician. We will continue Pl avix 75 mg daily for 12 months. MARK/MODL Voice ID: [id number] Report ID: [id number]
--- NOTE | 2024-12-17 06:43 | P.DS ---
Admission Date: 12/16/24 Discharge Date: 12/16/24 Disposition: ROUTINE DISCHARGE Discharge Condition: GOOD Reason for Admission: CP Consultations: Cardiology - Dr. Rodriges Brief History of Present Illness: 49 YO F, PMH: borderline diabetes Patient brought to ER with chest pain. Pain is located in retrosternally, nonradiating, no fever or chills. Denies any diaphoresis. No nausea vomiting or diarrhea. Denies any shortness of breath. Worse with movements. No previous history of CAD. Patient was assessed in the ER and was admitted for further management of chest pain to rule out ACS. Hospital Course: Problem List: NSTEMI CAD s/p mid LAD PCI (12/15) Physician discharge instructions: Patient presented with chest pressure, palpitations for 1 day and found to have an NSTEMI requiring stent placement in her LAD. Troponin's were elevated (peak 1574). CTA chest was negative for PE or any other acute findings. Patient was evaluated by Dr. Rodriges, cardiology and underwent left heart catheterization with stent placed in her mid LAD on 12/15 Left heart cath prelim report noted 60-70% mid LAD stenosis s/p PCI, mild proximal LAD stenosis. Patient did well post-operatively. She did have a brief episode of suddenly feeling short of breath, palpitations, and confusion. EKG, Chest x-ray, telemetry were all normal. No evidence of tachycardia / arrhythmia / ischemic changes. She was feeling tired, weak, and had some decreased mentation. No focal findings, however given her NSTEMI and recent procedure, a CT head was performed which was normal. Shortly after, she improved and returned back to her normal self. Cardiology re- evaluated the patient as well. She was feeling better and monitored for 8 hours without any further events. Vitals were within normal limits and stable. Discussed unclear what caused her episode, but may be a side effect of the Brilinta she received. Also discussed monitoring an additional night vs di scharge home. She felt much better and wanted to go home. She will have family with her who will monitor for any abnormalities. Return precautions given. Medications: Plavix Aspirin Rosuvastatin Follow up: PCP 3-5 days Cardiology 1-2 weeks Please call to schedule / confirm appointments Physical Exam: GEN: Alert, oriented, NAD CV: Regular rate and rhythm, no edema Pulm: Nonlabored respirations on room air, clear bilaterally ABD: soft, nontender, nondistended Neuro: Normal speech, normal affect Vital Signs/Physical Exam: Temp Pulse Resp BP Pulse Ox 97.9 F 66 20 113/65 96 12/16/24 16:00 12/16/24 16:00 12/16/24 16:00 12/16/24 16:00 12/16/24 16:00 Laboratory Data at Discharge: WBC 9.30 thou/uL (4.3-10.9) 12/16/24 13:35 Hgb 13.9 g/dL (12.0-15.0) 12/16/24 13:35 Hct 40.4 % (36.0-45.0) 12/16/24 13:35 Plt Count 385 thou/uL (152-406) 12/16/24 13:35 PT 11.5 SECONDS (9.4-12.5) 12/15/24 04:51 INR 1.10 12/15/24 04:51 APTT Cancelled 12/15/24 16:45 Sodium 136 mEq/L (136-145) 12/16/24 13:35 Potassium 4.0 mEq/L (3.5-5.1) D 12/16/24 13:35 BUN 12 mg/dL (7-18) 12/16/24 13:35 Creatinine 0.68 mg/dL (0.55-1.02) 12/16/24 13:35 Glucose 140 mg/dL (74-106) H 12/16/24 13:35 Phosphorus 3.0 mg/dL (2.5-4.9) 12/15/24 03:05 Magnesium 2.1 mg/dL (1.6-2.4) 12/16/24 13:35 Total Bilirubin 0.5 mg/dL (0.2-1.0) 12/16/24 13:35 AST 18 U/L (15-37) 12/16/24 13:35 ALT 25 U/L (13-56) 12/16/24 13:35 Alkaline Phosphatase 87 U/L (45-117) 12/16/24 13:35 Triglycerides 134 mg/dL (<150) 12/15/24 03:05 Cholesterol 172 mg/dL (<200) 12/15/24 03:05 HDL Cholesterol 45 mg/dL (40-60) 12/15/24 03:05 Cholesterol/HDL Ratio 3.82 12/15/24 03:05 Lipase 33 U/L (13-75) 12/14/24 20:42 Home Medications: Aspirin [Aspirin EC 81 MG] 81 mg PO DAILY 30 Days #30 tab 12/16/24 Clopidogrel Bisulfate [Plavix] 75 mg PO DAILY 30 Days #30 tab 12/16/24 Rosuvastatin Calcium [Crestor] 20 mg PO BEDTIME 30 Days #30 tab 12/16/24 New Medications: Aspirin [Aspirin EC 81 MG] 81 mg PO DAILY 30 Days #30 tab Rosuvastatin Calcium [Crestor] 20 mg PO BEDTIME 30 Days #30 tab Clopidogrel Bisulfate [Plavix] 75 mg PO DAILY 30 Days #30 tab Physician Discharge Instructions: Physician discharge instructions: Patient presented with chest pressure, palpitations for 1 day and found to have an NSTEMI requiring stent placement in her LAD. Troponin's were elevated (peak 1574). CTA chest was negative for PE or any other acute findings. Patient was evaluated by Dr. Rodriges, cardiology and underwent left heart catheterization with stent placed in her mid LAD on 12/15 Left heart cath prelim report noted 60-70% mid LAD stenosis s/p PCI, mild proximal LAD stenosis. Patient did well post-operatively. She did have a brief episode of suddenly feeling short of breath, palpitations, and confusion. EKG, Chest x-ray, telemetry were all normal. No evidence of tachycardia / arrhythmia / ischemic changes. She was feeling tired, weak, and had some decreased mentation. No focal findings, however given her NSTEMI and recent procedure, a CT head was performed which was normal. Shortly after, she improved and returned back to her normal self. Cardiology re- evaluated the patient as well. She was feeling better and monitored for 8 hours without any further events. Vitals were within normal limits and stable. Discussed unclear what caused her episode, but may be a side effect of the Brilinta she received. Also discussed monitoring an additional night vs discharge home. She felt much better and wanted to go home. She will have family with her who will monitor for any abnormalities. Return precautions given. Medications: Plavix Aspirin Rosuvastatin Follow up: PCP 3-5 days Cardiology 1-2 weeks Please call to schedule / confirm appointments Followup: Jd Rodriges MD [ACTIVE - CAN ADMIT] - 1-2 Weeks NONE,NONE [Primary Care Provider] - Time spent managing pt's care (in minutes): 45
[2024-12-17] MEDS ORDERED: CLOPIDOGREL 75 MG TABLET PO SCH (09:00)
--- NOTE | 2024-12-20 12:27 | EKG ---
Test Date: 2024-12-16 Test Time: 11:43:51 Pari [employer]uel Ticket Cashier: SORAYA MEASUREMENT RESULTS: Intervals: Rate: 74 TN: 122 QRSD: 74 QT: 380 QTc: 421 [place]: P: 58 TN: 122 QRS: 59 T: 38 INTERPRETIVE STATEMENTS: Normal sinus rhythm with sinus arrhythmia Normal ECG Compared to ECG 12/16/2024 11:43:09 No significant changes Electronically Signed On 12-20-24 12:20:11 EMBEDDED SYSTEMS DEVELOPER by Jd Rodriges
--- NOTE | 2024-12-20 12:28 | EKG ---
Test Date: 2024-12-16 Test Time: 11:43:09 Arcade Games Mechanic: SORAYA MEASUREMENT RESULTS: Intervals: Rate: 80 MD: 126 QRSD: 70 QT: 388 QTc: 447 [place]: P: 59 MD: 126 QRS: 57 T: 44 INTERPRETIVE STATEMENTS: Normal sinus rhythm with sinus arrhythmia Normal ECG Compared to ECG 12/15/2024 05:08:36 Sinus bradycardia no longer present Electronically Signed On 12-20-24 12:20:13 SHAREPOINT ANALYST by Jd Rodriges
--- NOTE | 2024-12-20 12:36 | EKG ---
Test Date: 2024-12-15 Test Time: 05:08:36 Lab Animal Technologist: JERICHO MEASUREMENT RESULTS: Intervals: Rate: 57 SC: 130 QRSD: 82 QT: 428 QTc: 416 [place]: P: 45 SC: 130 QRS: 43 T: 33 INTERPRETIVE STATEMENTS: Sinus bradycardia Otherwise normal ECG Compared to ECG 12/14/2024 20:33:05 Sinus rhythm no longer present Electronically Signed On 12-20-24 12:22:55 GROUNDS/MAINTENANCE SPECIALIST by Jd Rodriges
--- NOTE | 2024-12-20 12:38 | EKG ---
Test Date: 2024-12-14 Test Time: 20:33:05 Station Detective: NARDA MEASUREMENT RESULTS: Intervals: Rate: 78 [place]: 126 QRSD: 78 QT: 354 QTc: 403 [place]: P: 60 [place]: 126 QRS: 61 T: 58 INTERPRETIVE STATEMENTS: Normal sinus rhythm Normal ECG No previous ECG available for comparison Electronically Signed On 12-20-24 12:23:25 COMMUNITY SERVICE WORKER by Jd Rodriges
== END 2024-12-16 18:32 | disposition home or self-care (01) | DRG 322 ==
LOC: ER 20:23 → ERHOLD 23:07 → 4TH 12-15 01:01 → OBSVTOIN 12-16 09:00
PROVIDERS: ADMIT Family Medicine; ATTEND Hospitalist
PROC: 027034Z Dilation of Coronary Artery, One Artery with Drug-eluting Intraluminal Device, Percutaneous Approach (ICD-10-PCS; principal; 2024-12-16)
PROC: 4A023N7 Measurement of Cardiac Sampling and Pressure, Left Heart, Percutaneous Approach (ICD-10-PCS; 2024-12-16)
PROC: B2111ZZ Fluoroscopy of Multiple Coronary Arteries using Low Osmolar Contrast (ICD-10-PCS; 2024-12-16)
DX: I21.4 Non-ST elevation (NSTEMI) myocardial infarction (principal); I10 Essential (primary) hypertension; E66.9 Obesity, unspecified; I25.10 Atherosclerotic heart disease of native coronary artery without angina pectoris; Z90.81 Acquired absence of spleen; Z68.31 Body mass index [BMI] 31.0-31.9, adult; Z79.82 Long term (current) use of aspirin; Z79.02 Long term (current) use of antithrombotics/antiplatelets; Z79.899 Other long term (current) drug therapy
CPT/HCPCS: 36415; 70450; 71045; 71275; 76937; 80048; 80053; 80061; 80076; 80143; 80179; 80307; 81001; 82077; 82947; 83036; 83690; 83735; 83880; 84100; 84443; 84484; 85025; 85049; 85347; 85610; 85730; 92928; 93005; 93306; 93454; 96361; 96372; 96374; 99152; 99153; 99285; C1725; C1877; C1893; G0378; J0461; J1644; J2003; J2250; J3010; J7030; J7040; Q9967

== ENCOUNTER 2025-01-16 18:14 | Emergency (ER) | payer OTHER ==
[2025-01-16 19:03] LABS: Absolute Eosinophils 0.2 K/uL (0-0.5); Absolute Lymphocytes (CBC) 4.3 K/uL (0.7-4.9); Absolute Monocytes 0.8 K/uL (0.1-1.3); Absolute Neutrophil 3.7 K/uL (1.8-8.0); Basophils % 0.3 % (0-1.3); Eosinophils % 1.9 % (0-4.4); Hematocrit 39.3 % (36.0-45.0); Hemoglobin 13.5 g/dL (12.0-15.0); Lymphocytes % 48.1 % (15.3-44.8); MCH 31.4 pg (27.0-35.0); MCHC 34.3 g/dL (32.0-36.0); MCV 91.6 fL (80-100); MPV 8.7 fL (7.6-11.3); Neutrophils % 40.7 % (41.7-73.7); Nucleated Red Blood Cells % 0.2 % (0-0); Platelets 330 thou/uL (152-406); RBC Red Blood Cell Count 4.29 M/uL (3.86-4.86); Red Cell Distribution Width 13.9 % (12.1-15.2)
[2025-01-16 19:15] LABS: PT Prothrombin Time 10.9 SECONDS (10.0-13.0); PTT, Activated Partial Thromb 27.7 SECONDS (24.3-36.9); Protime INR 0.95
--- NOTE | 2025-01-16 19:28 | RAD REPORT ---
EXAM: Chest Single View HISTORY: 49 years Female dizziness COMPARISON: 12/16/2024 FINDINGS: LUNGS/PLEURA: The lungs are clear. No pleural effusions or pneumothorax. No pulmonary edema. CARDIAC/MEDIASTINUM: The cardiac silhouette is within normal limits. UPPER ABDOMEN: No significant abnormality. BONES: No acute abnormality. LINES/TUBES/OTHER: N/A IMPRESSION: No evidence of acute cardiopulmonary disease.
[2025-01-16 19:37] LABS: Band Neutrophils 9 % (0-1); Differential Total Cells Count 100; Eosinophils 1 % (0-3); Lymphocytes 51 % (15-42); Monocytes 2 % (0-10); Reactive Lymphocytes 5 %; Segmented Neutrophils 32 % (40-80)
[2025-01-16 19:38] LABS: Blood Morphology Comment NOT SEEN (NOT SEEN); Platelet Estimate ADEQ
--- NOTE | 2025-01-16 20:00 | RAD REPORT ---
EXAMINATION: UPPER EXTREMITY VENOUS UNILATE CLINICAL INDICATION: Female, 49 years old.right arm tingling, recent cath RIGHT TECHNIQUE: Multiplanar grayscale and color Doppler images were obtained in a upper extremity venous ultrasound. Spectral analysis of the Doppler waveforms were performed. COMPARISON: No prior exams FINDINGS: The internal jugular vein, subclavian vein, axillary vein, basilic vein, brachial vein, cephalic vein , radial vein, and ulnar vein were evaluated and patent. The brachial vein, cephalic vein, radial vein, and ulnar veins were compressible and patent. IMPRESSION: No evidence of deep venous thrombosis in the right upper extremity.
--- NOTE | 2025-01-16 20:01 | RAD REPORT ---
EXAMINATION: Head Brain Wo Cont CLINICAL INDICATION: Female, 49 years old.DIZZINESS TECHNIQUE: Axial CT images from the skull base to the vertex without intravenous contrast. Coronal an d sagittal reformatted images were created from the data set. One or more of the following dose reduction techniques were used: Automated exposure control, adjustment of the mA and/or kV according to patient size, and/or iterative reconstruction. Unless otherwise specified, incidental findings do not require dedicated imaging follow-up. [id number]. COMPARISON: 12/16/2024 FINDINGS: INTRACRANIAL: No acute intracranial hemorrhage. No hydrocephalus. No mass effect or midline shift. No significant white matter disease. VASCULATURE: No visualized abnormalities in the arteries or dural venous sinuses. SCALP/SKULL: No calvarial fracture identified. No acute soft tissue abnormality. SINUSES: The visualized paranasal sinuses are mostly clear. No significant mastoid fluid. IMPRESSION: No acute intracranial abnormality. No significant change from prior.
--- NOTE | 2025-01-16 20:07 | RAD REPORT ---
EXAMINATION: CTA NECK CLINICAL INDICATION: Female, 49 years old. dizziness TECHNIQUE: Axial CT images were obtained from the aortic arch to the skull base after intravenous con trast utilizing angiographic protocol with 3D post-processing (maximum intensity projection images, volume rendered images and/or shaded surface rendered images). One or more of the following dose redu ction techniques were used: Automated exposure control, adjustment of the mA and/or kV according to patient size, and/or iterative reconstruction. Unless otherwise specified, incidental findings do not require dedicated imaging follow-up. [id number]. NASCET criteria used. Mild 0-49% stenosis Moderate 50-69% stenosis Severe 70-99% stenosis COMPARISON: No prior exam. FINDINGS: AORTA: The imaged aortic arch is normal. CCA: The common carotid arteries are patent and normal in caliber. ICA/ECA: Bilateral internal and external carotid arteries are patent. There is no significant interna l carotid artery stenosis. Where applicable, degree of stenosis is measured using NASCET-like criteria. VERTEBRAL: The cervical vertebral arteries are patent and codominant. SOFT TISSUE: Small bilateral parotid nodules may be intraparotid lymph nodes. These are doubtful sign ificance. The visualized lung apices are clear. 3D images confirm these findings. IMPRESSION: No arterial dissection or stenosis identified within the neck.
--- NOTE | 2025-01-16 20:08 | RAD REPORT ---
EXAMINATION: CTA HEAD CLINICAL INDICATION: Female, 49 years old. DIZZINESS TECHNIQUE: Axial CT images were obtained through the head after intravenous contrast utilizing angiog raphic protocol with 3D post-processing (maximum intensity projection images, volume rendered images and/or shaded surface rendered images). One or more of the following dose reduction technique s were used: Automated exposure control, adjustment of the mA and/or kV according to patient size, and/or iterative reconstruction. Unless otherwise specified, incidental findings do not require dedic ated imaging follow-up. COMPARISON: No prior exam. FINDINGS: ICA: The petrous, cavernous, and supraclinoid segments of the bilateral internal carotid arteries are normal. The ophthalmic artery origins are visualized and normal. The posterior communicating arteries are patent. ANDREW: Anterior cerebral arteries are normal bilaterally. The anterior communicating artery is patent. MCA: Middle cerebral arteries are normal bilaterally. BOARDING SPECIALIST: Posterior cerebral arteries are normal bilaterally. Vertebrobasilar: The vertebral arteries are patent. The basilar artery is normal in appearance. 3D images confirm these findings. IMPRESSION: No occlusion, aneurysm, or hemodynamically significant stenosis identified.
[2025-01-16] MEDS ORDERED: LORazepam 2 MG/ML VIAL ONE (20:17)
--- NOTE | 2025-01-16 20:18 | RAD REPORT ---
EXAM: Upper Ext Artery Uni Ernesto HISTORY: right arm tingling/pain RIGHT COMPARISON: None TECHNIQUE: Multiplanar grayscale and color Doppler images were obtained for an upper extremity arteri al ultrasound. Spectral analysis of the Doppler waveforms were performed. The common carotid artery, subclavian artery, axillary artery, brachial artery, radial artery, and ulnar arteries were e valuated. FINDINGS: The common carotid artery, subclavian artery, axillary artery, brachial artery, radial artery, and ul ramiro arteries were evaluated. Flow was documented on color Doppler. The waveforms were multiphasic and within normal limits. Velocities are within normal limits. IMPRESSION: No significant arterial abnormality of the right upper extremity.
[2025-01-16 20:34] LABS: ALT/SGPT 35 U/L (13-56); AST/SGOT 17 U/L (15-37); Albumin 3.5 g/dL (3.4-5.0); Albumin/Globulin Ratio 0.8 (1.1-1.8); Alkaline Phosphatase 100 U/L (45-117); Anion Gap 8.9 mEq/L (5.0-15.0); BUN Blood Urea Nitrogen 14 mg/dL (7-18); Bicarbonate 24 mEq/L (21-32); Bilirubin Total 0.3 mg/dL (0.2-1.0); Globulin 4.4 g/dL (2.3-3.5); Glomerular Filtration Rate 106 ml/min (=/>90); Glucose Level 105 mg/dL (74-106); Magnesium 2.1 mg/dL (1.6-2.4); Potassium 3.9 mEq/L (3.5-5.1); Protein, Total 7.9 g/dL (6.4-8.2); Sodium Level 136 mEq/L (136-145)
[2025-01-16 20:38] LABS: Bilirubin Direct < 0.2 mg/dL (0-0.2); Bilirubin Indirect, Calculated 0.1 mg/dL (0.2-0.8); Troponin High Sensitivity < 3.0 pg/mL (<58.9)
--- NOTE | 2025-01-16 21:16 | EDPHYS ---
Physician Documentation [facility] Name: Rona Thompson Age: 49 yrs Sex: Female : 1975 Arrival Date: 01/16/2025 Time: 18:14 Bed 5 Private MD: ED Physician Vu Crowell HPI: 01/16 18:54 This 49 yrs old Female presents to ER via Ambulatory with complaints of rn Headache, Dizziness, Numbness Of Arm. 18:54 The patient presents with dizziness, feeling faint, lightheadedness. Onset: The rn symptoms/episode began/occurred 3 week(s) ago. Modifying factors: The symptoms are alleviated by nothing, the symptoms are aggravated by movement of head, standing up, changing position. Severity of symptoms: At their worst the symptoms were moderate in the emergency department the symptoms are unchanged. 18:56 The patient has not experienced similar symptoms in the past. Patient reports 3 to 4 rn weeks of dizziness, near syncope, admitted to the hospital and diagnosed with NSTEMI. Reports has been having recurrent episodes since then despite heart cath and stent. Reports now having pain and tingling to the right upper extremity where cath was performed. No weakness. No vision changes or slurred speech.. SENIOR MARKETING MANAGER: 21:23 unknown bm8 Historical: - Allergies: 18:41 No Known Allergies; aa5 - Home Meds: 18:41 clopidogrel 75 mg oral tablet daily [Active]; aspirin 81mg Oral tablet daily [Active]; aa5 rosuvastatin 20 mg oral tablet bedtime [Active]; - PMHx: 18:41 Myocardial infarction; aa5 - PSHx: 18:41 Heart stent; aa5 - Immunization history:: Adult Immunizations unknown. - Infectious Disease History:: Denies. - Social history:: Smoking status: Patient denies any tobacco usage or history of. Patient/guardian denies using alcohol. - Family history:: not pertinent. - Hospitalizations: : The patient was recently seen at [facility]. ROS: 18:56 Constitutional: Negative for fever, chills, and weight loss, Cardiovascular: Negative rn for chest pain, palpitations, and edema, Respiratory: Negative for shortness of breath, cough, wheezing, and pleuritic chest pain, Abdomen/GI: Negative for abdominal pain, nausea, vomiting, diarrhea, and constipation, MS/Extremity: Negative for injury and deformity, Skin: Negative for injury, rash, and discoloration, Neuro: Negative for headache, weakness, and seizure, Exam: 18:56 Constitutional: This is a well developed, well nourished patient who is awake, alert, rn appears anxious. Ambulatory to room without assistance or difficulty. No ataxia Cardiovascular: Regular rate and rhythm. No pulse deficits. Respiratory: No increased work of breathing, no retractions or nasal flaring. Abdomen/GI: Soft, non-tender, with normal bowel sounds. No distension or tympany. No guarding or rebound. No evidence of tenderness throughout. MS/ Extremity: Pulses equal, no cyanosis. Neurovascular intact. Full, normal range of motion. Equal circumference. Neuro: Awake and alert, GCS 15, oriented to person, place, time, and situation. Cranial nerves II-XII grossly intact. Motor strength 5/5 in all extremities. Sensory grossly intact. Cerebellar exam normal. Normal gait. 19:03 ECG was reviewed by the Attending Physician. rn Vital Signs: 18:41 BP 118 / 68; Pulse 71; Resp 16 S; Temp 98.2(O); Pulse Ox 99% on R/A; Weight 68.49 kg aa5 (R); Height 4 ft. 11 in. (R); 18:56 BP 127 / 93; Pulse 81; Resp 18 S; Pulse Ox 98% on R/A; aa5 19:20 BP 141 / 73; Pulse 86; Resp 18; Temp 98.2; Pulse Ox 97% ; Pain 3/10; bm8 21:00 BP 116 / 74; Pulse 66; Resp 18; Temp 98.2; Pulse Ox 98% ; Pain 0/10; bm8 18:41 Body Mass Index 30.50 (68.49 kg, 149.86 cm) aa5 19:20 Pain Scale: Adult bm8 21:00 Pain Scale: Adult bm8 Amber Coma Score: 19:20 Eye Response: spontaneous(4). Motor Response: obeys commands(6). Verbal Response: bm8 oriented(5). Total: 15. 21:00 Eye Response: spontaneous(4). Motor Response: obeys commands(6). Verbal Response: bm8 oriented(5). Total: 15. MDM: 18:21 Medical Screening Exam initiated rn 21:13 Data reviewed: vital signs, nurses notes, lab test result(s), EKG, radiologic studies. sp3 ED course: Patient signed out to me by Dr. Zambrano daytime physician. Patient is a 49-year-old female with history of AK with stent placement approximately [address] Draper presents ED with right wrist and upper extremity pain as well as dizziness and near syncope. Full workup is negative including troponin, EKG showing no acute changes, CT head, CT angiogram of the head, CT angiogram of the neck, ultrasound right upper extremity and chest x-ray. Labs all within normal limits as well. Vital signs remain normal. Patient is not having any current symptoms on my evaluation. No chest pain reported. We will safely discharge patient with clinic follow-up with cardiology at this time.. 01/16 18:43 Order name: Basic Metabolic Panel; Complete Time: 20:48 rn 01/16 18:43 Order name: CBC with Diff; Complete Time: 19:50 rn 01/16 18:43 Order name: Hepatic Function; Complete Time: 20:48 rn 01/16 18:43 Order name: Magnesium; Complete Time: 20:48 rn 01/16 18:43 Order name: Protime (+inr); Complete Time: 19:50 rn 01/16 18:43 Order name: Ptt, Activated; Complete Time: 19:50 rn 01/16 18:43 Order name: Troponin High Sensitivity; Complete Time: 20:48 rn 01/16 19:12 Order name: Manual Differential; Complete Time: 19:50 EDMS 01/16 18:43 Order name: CT Head Brain wo Cont; Complete Time: 20:25 rn 01/16 18:43 Order name: Chest Single View XRAY; Complete Time: 19:50 rn 01/16 18:43 Order name: Head Angio CT; Complete Time: 20:25 rn 01/16 18:43 Order name: Neck Angio CT; Complete Time: 20:25 rn 01/16 19:46 Order name: Upper Ext Artery Uni Ernesto; Complete Time: 20:25 EDMS 01/16 19:46 Order name: UPPER EXTREMITY VENOUS UNILATE; Complete Time: 20:25 EDMS 01/16 18:43 Order name: EKG; Complete Time: 18:44 rn 01/16 18:43 Order name: Cardiac monitoring; Complete Time: 18:59 rn 01/16 18:43 Order name: EKG - Nurse/Tech; Complete Time: 18:59 rn 01/16 18:43 Order name: IV Saline Lock; Complete Time: 18:59 rn 01/16 18:43 Order name: Labs collected and sent; Complete Time: 18:59 rn 01/16 18:43 Order name: NPO; Complete Time: 18:59 rn 01/16 18:43 Order name: O2 Per Protocol; Complete Time: 18:59 rn 01/16 18:43 Order name: O2 Sat Monitoring; Complete Time: 18:59 rn 01/16 19:11 Order name: Labs - recollect needed: recollect green top ; Complete Time: 20:09 kmf EC:03 Rate is 69 beats/min. Rhythm is regular. QRS [place] is Normal. [place] interval is normal. QRS rn interval is normal. QT interval is normal. No Q waves. T waves are Normal. No ST changes noted. Clinical impression: NSR w/ Non-specific ST/T Changes. Interpreted by me. Reviewed by me. Administered Medications: 20:20 Drug: Ativan IVP 0.5 mg IVP once Route: IVP; Site: right antecubital; jb4 21:01 Follow up: Response: No adverse reaction bm8 Disposition Summary: 01/16/25 21:15 Discharge Ordered Notes: Location: Home sp3 Condition: Stable sp3 Diagnosis - Dizziness, right upper extremity pain after catheterization, near syncope sp3 Followup: sp3 - With: Private Physician - When: Upon discharge from the Emergency Department - Reason: Continuance of care Discharge Instructions: - Discharge Summary Sheet sp3 - Near-Syncope sp3 Forms: - Medication Reconciliation Form sp3 - Antibiotic Education sp3 - Prescription Opioid Use sp3 - Patient Portal Instructions sp3 - Leadership Thank You Letter sp3 Signatures: Dispatcher [employer] EDMS Wesley Zambrano MD MD rn Calderon, Audri RN RN aa5 Javan Flores, JOANA RN jb4 Vu Crowell MD MD sp3 Leena Porter [facility] Sravan Zavaleta RN bm8 Corrections: (The following items were deleted from the chart) 19:04 18:56 Extremity Venous Uni Ltd+US.RAD.BRZ ordered. EDMS EDMS 19:04 18:56 Lower Extremity Artery Uni Ltd+US.RAD.BRZ ordered. EDMS EDMS 19:46 19:04 UPPER EXTREMITY VENOUS UNILATE ordered. EDMS EDMS :46 19:04 Upper Ext Artery Uni Ernesto ordered. EDMS EDMS
--- NOTE | 2025-01-16 21:16 | ER ---
Nurse's Notes [facility] Name: Rona Thompson Age: 49 yrs Sex: Female : 1975 Arrival Date: 01/16/2025 Time: 18:14 Bed 5 Private MD: Diagnosis: Dizziness, right upper extremity pain after catheterization, near syncope Presentation: 01/16 18:41 Chief complaint: Chief complaint: Patient states: "I had a heart attack about a month aa5 ago and got a heart stent but since then I've been feeling dizzy, short of breath, anxious, and my right arm feels numb and I feel my right arm pulsating". 18:41 Acuity: JESSICA 2 aa5 18:41 Coronavirus screen: At this time, the client does not indicate any symptoms associated aa5 with coronavirus-19. Ebola Screen: Patient denies travel to an Ebola-affected area in the 21 days before illness onset. Initial Sepsis Screen: Does the patient meet any 2 criteria? No. Patient's initial sepsis screen is negative. Does the patient have a suspected source of infection? No. Patient's initial sepsis screen is negative. Risk Assessment: Do you want to hurt yourself or someone else? Patient reports no desire to harm self or others. Onset of symptoms was 2024. 18:41 Method Of Arrival: Ambulatory aa5 Triage Assessment: 21:24 Pain: Also complains of. bm8 ICER MACHINE: 21:23 unknown bm8 Historical: - Allergies: 18:41 No Known Allergies; aa5 - Home Meds: 18:41 clopidogrel 75 mg oral tablet daily [Active]; aspirin 81mg Oral tablet daily [Active]; aa5 rosuvastatin 20 mg oral tablet bedtime [Active]; - PMHx: 18:41 Myocardial infarction; aa5 - PSHx: 18:41 Heart stent; aa5 - Immunization history:: Adult Immunizations unknown. - Infectious Disease History:: Denies. - Social history:: Smoking status: Patient denies any tobacco usage or history of. Patient/guardian denies using alcohol. - Family history:: not pertinent. - Hospitalizations: : The patient was recently seen at [facility]. Screenin:00 Abuse screen: Denies threats or abuse. Denies injuries from another. Nutritional ss screening: No deficits noted. Tuberculosis screening: Never had TB. 19:00 [facility] ED Fall Risk Assessment (Adult) History of falling in the last 3 months, ss including since admission No falls in past 3 months (0 pts) Confusion or Disorientation No (0 pts) Intoxicated or Sedated No (0 pts) Impaired Gait No (0 pts) Mobility Assist Device Used No (0 pt) Altered Elimination No (0 pt) Score/Fall Risk Level 0 - 2 = Low Risk Oriented to surroundings, Maintained a safe environment. Assessment: 19:00 General: Appears in no apparent distress. comfortable, Behavior is calm, cooperative. ss Pain: Denies pain. Neuro: Level of Consciousness is awake, alert, obeys commands, Oriented to person, place, time, situation, Store Consultant are equal bilaterally Speech is normal. Neuro: Reports intermittent MARK and dizziness x 3 weeks. Respiratory: Airway is patent Respiratory effort is even, unlabored, Respiratory pattern is regular, symmetrical. GI: Patient currently denies diarrhea, nausea, vomiting. : No signs and/or symptoms were reported regarding the genitourinary system. EENT: Oral mucosa is moist. Throat is clear. Derm: Skin is pink, warm \\T\\ dry. normal. 19:20 General: Appears in no apparent distress. comfortable, Behavior is calm, cooperative, bm8 appropriate for age. Pain: Complains of pain in chest Pain currently is 3 out of 10 on a pain scale. Quality of pain is described as pressure. Neuro: No deficits noted. Level of Consciousness is awake, alert, obeys commands, Oriented to person, place, time, situation, Reports dizziness, headache. Cardiovascular: Reports chest pain, Heart tones S1 S2 present Capillary refill < 3 seconds in bilateral fingers Patient's skin is warm and dry. Rhythm is sinus rhythm. Respiratory: Airway is patent Respiratory effort is even, unlabored, Respiratory pattern is regular, symmetrical, Breath sounds are clear bilaterally. GI: No signs and/or symptoms were reported involving the gastrointestinal system. : No signs and/or symptoms were reported regarding the genitourinary system. EENT: No signs and/or symptoms were reported regarding the EENT system. Derm: No signs and/or symptoms reported regarding the dermatologic system. Musculoskeletal: No signs and/or symptoms reported regarding the musculoskeletal system. 21:00 Reassessment: Patient appears in no apparent distress at this time. Patient and/or bm8 family updated on plan of care and expected duration. Pain level reassessed. Patient is alert, oriented x 3, equal unlabored respirations, skin warm/dry/pink. Patient denies pain at this time. Patient states feeling better. Patient states symptoms have improved. 21:00 Reassessment: escorted pt to restroom, pt walked with strong steady gait. bm8 Vital Signs: 18:41 BP 118 / 68; Pulse 71; Resp 16 S; Temp 98.2(O); Pulse Ox 99% on R/A; Weight 68.49 kg aa5 (R); Height 4 ft. 11 in. (R); 18:56 BP 127 / 93; Pulse 81; Resp 18 S; Pulse Ox 98% on R/A; aa5 19:20 BP 141 / 73; Pulse 86; Resp 18; Temp 98.2; Pulse Ox 97% ; Pain 3/10; bm8 21:00 BP 116 / 74; Pulse 66; Resp 18; Temp 98.2; Pulse Ox 98% ; Pain 0/10; bm8 18:41 Body Mass Index 30.50 (68.49 kg, 149.86 cm) aa5 19:20 Pain Scale: Adult bm8 21:00 Pain Scale: Adult bm8 Amber Coma Score: 19:20 Eye Response: spontaneous(4). Motor Response: obeys commands(6). Verbal Response: bm8 oriented(5). Total: 15. 21:00 Eye Response: spontaneous(4). Motor Response: obeys commands(6). Verbal Response: bm8 oriented(5). Total: 15. ED Course: 18:16 Patient arrived in ED. im 18:21 Wesley Zambrano MD is Attending Physician. rn 18:41 Arm band placed on Patient placed in an exam room, on a stretcher. EKG completed in aa5 triage. Results shown to MD. 18:52 Triage completed. aa5 19:00 Patient has correct armband on for positive identification. Bed in low position. Call ss light in reach. Side rails up X 1. alarm security or surveillance monitor on. Pulse ox on. NIBP on. Warm blanket given. 19:00 Inserted saline lock: 20 gauge in right antecubital area, using aseptic technique. ss Blood collected. Flushed with 10 mL NS. 19:09 Pau Parnell, RN is Primary Nurse. ss 19:20 No provider procedures requiring assistance completed. bm8 19:24 Chest Single View XRAY In Process Unspecified. EDMS 19:46 Upper Ext Artery Uni Ernesto In Process Unspecified. EDMS 19:46 UPPER EXTREMITY VENOUS UNILATE In Process Unspecified. EDMS 19:51 CT Head Brain wo Cont In Process Unspecified. EDMS 19:[address] In Process Unspecified. EDMS 19:[address] In Process Unspecified. EDMS 20:14 Attending Physician role handed off by Wesley Zambrano MD sp3 20:14 uV Crowell MD is Attending Physician. sp3 21:23 Provided Education on: post er care, follow up with Cardiology. bm8 21:23 IV discontinued, intact, bleeding controlled, No redness/swelling at site. Pressure bm8 dressing applied. Administered Medications: 20:20 Drug: Ativan IVP 0.5 mg IVP once Route: IVP; Site: right antecubital; jb4 21:01 Follow up: Response: No adverse reaction bm8 Medication: 19:00 VIS not applicable for this client. ss Outcome: 21:15 Discharge ordered by . sp3 21:23 Discharged to home ambulatory, with family, bm8 21:23 Condition: stable 21:23 Discharge instructions given to patient, family, Instructed on discharge instructions, follow up and referral plans. no drinking with medication, no driving heavy equipment, medication usage, safety practices, Demonstrated understanding of instructions, follow-up care, medications, 21:24 Patient left the ED. bm8 Signatures: Dispatcher [employer] EDMS Wesley Zambrano MD MD rn Calderon, Audri RN RN aa5 Pau Parnell, RN RN Javan Flores RN RN jb4 Vu Crowell MD MD sp3 Bethanie Gonzalez Brad, RN RN bm8 Corrections: (The following items were deleted from the chart) 18:55 18:41 Chief complaint: aa5 aa5
[2025-01-16 21:28] VITALS: TEMP 98.2
[2025-01-16 21:32] VITALS: BP 116/74; O2SAT 98
--- NOTE | 2025-01-17 12:12 | EKG ---
Test Date: 2025-01-16 Test Time: 18:41:52 [employer]: JOSELITO MEASUREMENT RESULTS: Intervals: Rate: 69 KS: 128 QRSD: 78 QT: 398 QTc: 426 [place]: P: 44 KS: 128 QRS: 38 T: 14 INTERPRETIVE STATEMENTS: Normal sinus rhythm Nonspecific T wave abnormality Abnormal ECG Compared to ECG 12/16/2024 11:43:51 T-wave abnormality now present Sinus arrhythmia no longer present Electronically Signed On 01-17-25 12:10:40 AMPOULE SEALER by Jd Rodriges
== END 2025-01-16 21:24 | disposition home or self-care (01) ==
LOC: ER 18:14
DX: R42 Dizziness and giddiness (principal); R55 Syncope and collapse; G89.18 Other acute postprocedural pain; Z95.5 Presence of coronary angioplasty implant and graft; I25.2 Old myocardial infarction; Z79.82 Long term (current) use of aspirin
CPT/HCPCS: 93005; 85025; 80048; 36415; 83735; 85610; 82565; 80076; 85730; 84484; 70450; 70496; 70498; 71045; 93971; 93931; 96374; 99285; Q9967